=== PATIENT | male | born 1980 | race Caucasian/White ===

== ENCOUNTER 2017-02-24 19:20 | Emergency (ER) | payer BC ==
[2017-02-24 19:41] VITALS: BP 134/82; PULSE 71; RESP 16; TEMP 98.9; O2SAT 98
[2017-02-24] MEDS ORDERED: Ciprofloxacin 0.3% OPTH SOLN OD STA (19:57)
--- NOTE | 2017-02-24 19:57 | C.PDOC ---
History Of Present Illness Patient complains of redness, swelling and discharge from right eyelid. Patient states 5 days ago he noticed bump to eyelid which he thought was a stye. He applied warm compress and noticed morgan. Patient popped the area 2 days ago and it remains red, swollen and has discharge. Denies vision changes, fever, contact lens use. Time Seen by Provider: 02/24/17 19:50 Chief Complaint (Nursing): Eye Problem History Per: Patient History/Exam Limitations: no limitations Onset/Duration Of Symptoms: Days (5), Worse Since (2 days) Current Symptoms Are (Timing): Still Present Wears Contact Lens?: No Associated Symptoms: Discharge From Eye Past Medical History Reviewed: Historical Data, Nursing Documentation, Vital Signs Vital Signs: Last Vital Signs Temp 98.9 F 02/24/17 19:36 Pulse 71 02/24/17 19:36 Resp 16 02/24/17 19:36 BP 134/82 02/24/17 19:36 Pulse Ox 98 02/24/17 19:36 - Medical History PMH: No Chronic Diseases Surgical History: No Surg Hx Family History: States: Unknown Family Hx - Social History Hx Alcohol Use: Yes Hx Substance Use: No - Immunization History Hx Tetanus Toxoid Vaccination: No Hx Influenza Vaccination: No Hx Pneumococcal Vaccination: Yes Review Of Systems Except As Marked, All Systems Reviewed And Found Negative. Eyes: Positive for: Eyelid Inflammation, Redness, Other (discharge). Negative for: Pain, Vision Change Physical Exam - Physical Exam Appears: Non-toxic, No Acute Distress Skin: Warm, Dry, No Rash Head: Atraumatic, Normacephalic Eye(s): bilateral: PERRL, EOMI, right: Eyelid Inflammation (lower eyelid), Other (tenderness and pointing of medial lower eyelid with purulent discharge), left: Normal Inspection Oral Mucosa: Moist Neck: Normal ROM Chest: Symmetrical Extremity: Bilateral: Atraumatic, Normal Color And Temperature, Normal ROM Neurological/Psych: Oriented x3, Normal Speech ED Course And Treatment O2 Sat by Pulse Oximetry: 98 Medical Decision Making Medical Decision Making: Culture obtained and sent to labs. Cipro drop applied to eye Patient instructed to not squeeze or pop the area any further. May apply warm compress. Apply eyedrops to eye. Follow up with optho (extracorporeal circulation specialist) in one week for more evaluation. Disposition Counseled Patient/Family Regarding: Diagnosis, Need For Followup, Rx Given - Disposition Referrals: Jaylon Abebe MD [Staff Provider] - Disposition: HOME/ ROUTINE Disposition Time: 20:03 Condition: GOOD Additional Instructions: Do not squeeze or pop the area any further. May apply warm compress. Apply 1-2 eyedrops to eye every 4 hours . Follow up with optho (extracorporeal circulation specialist) in one week for more evaluation. No apriete ni estacione el elda Puede aplicar compresa caliente. Aplique 1- 2 gotas para los ojos cada cuatro horas. Nitish un seguimiento con optho ( especialista en ojos) en yashira semana para ms blanchard. Instructions: Stye (ED), Conjunctivitis (ED) Print Language: LEBANESE - POA Present On Arrival: None - Clinical Impression Clinical Impression: Chalazion of right eyelid, Conjunctivitis
[2017-02-24] MEDS ORDERED: Ciprofloxacin 0.3% OPTH SOLN ONE ×2 (20:02→20:30)
== END 2017-02-24 20:25 | disposition home or self-care (01) ==
LOC: C.ER 19:20
DX: H00.12 Chalazion right lower eyelid (principal); H10.9 Unspecified conjunctivitis